=== PATIENT | male | born 1995 | race Two or more races ===

== ENCOUNTER 2017-05-29 02:20 | Emergency (ER) | payer OTHER ==
[2017-05-29] MEDS ORDERED: LORAZEPAM INJ 2 MG/1 ML VIAL IV ONE (02:31)
[2017-05-29] MEDS ORDERED: ONDANSETRON HCL INJ/PF 4 MG/2 ML SDV IV ONE (02:31)
[2017-05-29] MEDS ORDERED: LIDOCAINE 2% INJ-PF (20 MG/ML) 10 ML AMPUL NEB ONE ×2 (02:31→03:39)
[2017-05-29] MEDS ORDERED: BENZOCAINE 20% AEROSOL SPRAY 60 GM TP ONE (02:32)
--- NOTE | 2017-05-29 02:37 | ER Document Report ---
ED Foreign Body - General Mode of Arrival: Ambulatory Information source: Patient TRAVEL OUTSIDE OF THE [place] IN LAST 30 DAYS: No - HPI Patient complains to provider of: Foreign Body in Throat Location of foreign body: Throat Onset: This evening Associated symptoms: Other - see notes above <RICKY MCCORMICK - Last Filed: 05/29/17 02:31> <YUSUF RODRIGUEZ - Last Filed: 05/29/17 04:21> - General Chief Complaint: Swallowed Foreign Body Stated Complaint: SWALLOWED FOREIGN BODY Time Seen by Provider: 05/29/17 02:22 Notes: Patient is Russian speaking and is allowing his friend to translate. 21 year old male with no prior medical history presents to the ED complaining of a foreign body (chicken bone) lodged in his throat that occurred just prior to arrival. Patient reports that it hurts to talk and that he has noticed some blood. Patient has some pain with swallowing and reports some difficulty breathing through his mouth, but reports no difficulty breathing through his nose. Patient denies chest pain, nausea, or vomiting. (RICKY MCCORMICK) - Related Data Allergies/Adverse Reactions: No Known Allergies Allergy (Unverified 05/29/17 02:22) Past Medical History - General Information source: Patient - Social History Smoking Status: Never Smoker Chew tobacco use (# tins/day): No Frequency of alcohol use: Social Drug Abuse: None Family History: Reviewed & Not Pertinent - Medical History Medical History: Negative <RICKY MCCORMICK - Last Filed: 05/29/17 02:31> Review of Systems - Review of Systems Constitutional: No symptoms reported EENT: See HPI, Other - Foreign body in throat. Painful swallowing. Cardiovascular: No symptoms reported. denies: Chest pain Respiratory: No symptoms reported Gastrointestinal: No symptoms reported. denies: Nausea, Vomiting Genitourinary: No symptoms reported Male Genitourinary: No symptoms reported Musculoskeletal: No symptoms reported Skin: No symptoms reported Hematologic/Lymphatic: No symptoms reported Neurological/Psychological: No symptoms reported <RICKY MCCORMICK - Last Filed: 05/29/17 02:31> Physical Exam <RICKY MCCORMICK - Last Filed: 05/29/17 02:31> <YUSUF RODRIGUEZ - Last Filed: 05/29/17 04:21> - Vital signs Vitals: Temp Pulse Resp BP Pulse Ox 98 F 95 16 170/92 H 100 05/29/17 02:22 05/29/17 02:22 05/29/17 02:22 05/29/17 02:22 05/29/17 02:22 - Notes Notes: GENERAL: Alert, interacts well. No acute distress. HEAD: Normocephalic, atraumatic. EYES: Pupils equal, round, and reactive to light. Extraocular movements intact. ENT: Oral mucosa moist, tongue midline. There is a foreign body lodged horizontally between the two tonsils. No uvular edema. No difficulty swallowing or controlling his secretions. NECK: Full range of motion. Supple. Trachea midline. LUNGS: Clear to auscultation bilaterally, no wheezes, rales, or rhonchi. No respiratory distress. HEART: Regular rate and rhythm. No murmurs, gallops, or rubs. ABDOMEN: Non-distended. EXTREMITIES: Moves all 4 extremities spontaneously. No cyanosis. NEUROLOGICAL: Alert and oriented x3. Normal speech. PSYCH: Normal affect, normal mood. SKIN: Warm, dry, normal turgor. No rashes or lesions noted. (RICKY MCCORMICK) Course <RICKY MCCORMICK - Last Filed: 05/29/17 02:31> <YUSUF RODRIGUEZ - Last Filed: 05/29/17 04:21> - Re-evaluation Re-evalutation: 05/29/17 04:12 No foreign body or free air visualized on soft tissue neck and chest x-ray, chicken bone is easily visualized between the tonsils. No airway compromise at this time. Laryngoscopy was performed both before and after procedure, patient given Ativan for small amount of anxiety prior to foreign body retrieval, given lidocaine nebs and Hurricaine spray was also used to anesthetize the posterior oropharynx, forceps were then used to remove the foreign body that was lodged in the tonsil. Laryngoscopy using intubating fiberoptic bronchoscope did not reveal any trauma behind the tonsils, minimal blood seen coming from the left tonsil after drinking water that stopped, no further foreign bodies were noted in the oropharynx or directly above the vocal cords. Patient is discharged home. (YUSUF RODRIGUEZ) - Vital Signs Vital signs: Temp Pulse Resp BP Pulse Ox 98 F 95 14 148/87 H 100 05/29/17 02:22 05/29/17 02:22 05/29/17 04:01 05/29/17 04:01 05/29/17 04:01 Procedures - Additional Procedures laryngoscopy Additional Procedures: Other - Laryngoscopy <YUSUF RODRIGUEZ - Last Filed: 05/29/17 04:21> - Additional Procedures laryngoscopy Notes: 05/29/17 04:21 Laryngoscopy performed using fiberoptic intubating bronchoscope, indication was foreign body in the tonsils, patient tolerated well, prepped with Ativan for anxiety not for conscious sedation, lidocaine and Hurricaine for topical anesthetic. Foreign body was removed laryngoscopy repeated afterwards, no significant damage to the tonsils was noted only superficial abrasion. (YUSUF RODRIGUEZ) Discharge <RICKY MCCORMICK - Last Filed: 05/29/17 02:31> <YUSUF RODRIGUEZ - Last Filed: 05/29/17 04:21> - Discharge Clinical Impression: Swallowed chicken bone Qualifiers: Encounter type: initial encounter Qualified Code(s): T18.9XXA - Foreign body of alimentary tract, part unspecified, initial encounter Foreign body in throat Qualifiers: Encounter type: initial encounter Qualified Code(s): T17.208A - Unspecified foreign body in pharynx causing other injury, initial encounter Foreign body of tonsil Qualifiers: Encounter type: initial encounter Qualified Code(s): T17.208A - Unspecified foreign body in pharynx causing other injury, initial encounter Hypertension Qualifiers: Hypertension type: unspecified Qualified Code(s): I10 - Essential (primary) hypertension Condition: Stable Disposition: HOME, SELF-CARE Additional Instructions: Today we removed a chicken bone from your tonsils. There is no sign of severe damage to your tonsils. There is a small amount of bleeding from your left tonsil that stopped after you drank cold water. There is no sign of any further bones or other foreign bodies in your throat. Please avoid salty, spicy or crunchy foods for the next 24 hours. If you develop further pain or any difficulty swallowing please return to the emergency department. Please use salt water gargles that are only as salty as your tears every hour while awake for the next 24 hours. Forms: Elevated Blood Pressure Referrals: NICOLLE SAGASTUME MD [ACTIVE STAFF] - Follow up in 1 week Print Language: Russian Donald Attestation: 05/29/17 04:21 I personally performed the services described in the documentation, reviewed and edited the documentation which was dictated to the scribe in my presence, and it accurately records my words and actions. (YUSUF RODRIGUEZ) Scribe Documentation - Scribe Written by Donald:: Donald Haq, 05/29/2017, [id number] acting as scribe for :: Deepti <RICKY MCCORMICK - Last Filed: 05/29/17 02:31>
[2017-05-29] MEDS ORDERED: BENZOCAINE 20% AEROSOL SPRAY 60 GM ONE (02:47)
--- NOTE | 2017-05-29 03:33 | RADIOLOGY REPORT (SQ) ---
EXAM DESCRIPTION: CHEST PA/LAT CLINICAL HISTORY: 21 years, Male, chicken bone in throat COMPARISON: None. FINDINGS: Normal lung volume, clear parenchyma, normal cardiac silhouette, and intact bony thorax. IMPRESSION: No acute cardiopulmonary findings. 2011 [employer]- All Rights Reserved
--- NOTE | 2017-05-29 03:35 | RADIOLOGY REPORT (SQ) ---
EXAM DESCRIPTION: SOFT TISSUE NECK CLINICAL HISTORY: 21 years, Male, chicken bone in throat COMPARISON: None. NUMBER OF VIEWS: 2 LIMITATIONS: None. FINDINGS: Nuchal soft tissues appear radiographically intact. Patent nasopharynx. No significant radiopaque foreign body. IMPRESSION: No acute findings. 2011 [employer]- All Rights Reserved
[2017-05-29 04:08] VITALS: BP 148/87
== END 2017-05-29 04:25 | disposition home or self-care (01) ==
LOC: ER 02:20
DX: T17.228A Food in pharynx causing other injury, initial encounter (principal); X58.XXXA Exposure to other specified factors, initial encounter; F41.9 Anxiety disorder, unspecified; I10 Essential (primary) hypertension
CPT/HCPCS: 31530; 99283; 96374; 71046; 70360; J3490 ×2; J2060; J2405